=== PATIENT | female | born 2000 | race American Indian/Alaskan Native ===

== ENCOUNTER 2019-07-09 21:18 | Emergency (ER) | payer BC ==
[2019-07-09 21:44] VITALS: BP 122/80
== END 2019-07-09 23:50 | disposition left against medical advice (07) ==
LOC: ED 21:18
DX: J45.909 Unspecified asthma, uncomplicated (principal); Z53.21 Procedure and treatment not carried out due to patient leaving prior to being seen by health care provider

== ENCOUNTER 2020-01-30 21:26 | Emergency (ER) | payer BC, MEDICAID ==
[2020-01-30] MEDS ORDERED: TETRACAINE 0.5% OPHTH SOLN 4ML OU STA (22:02)
[2020-01-30] MEDS ORDERED: FLUORESCEIN 1 MG STRIP OP STA (22:02)
[2020-01-30 22:09] VITALS: BP 126/81
--- NOTE | 2020-01-30 23:28 | Emergency Department Report ---
Eye Injury/Foreign Body - HPI Duration: Today Eye Location: Left Severity: None Tetanus Status: Up to Date Eye Symptoms: Eye Pain: Yes, Blurred Vision: Yes, Eye Redness: Yes, Grinding/Hammering Metal: No, Used Eye Protection: No, Contact Lens Use: No, Recalls Injury: Yes (Continue to patient with her sister and was also an scratch to her left), Photophobia: No ED Review of Systems ROS: Stated complaint: LT EYE PAINS Other details as noted in HPI Comment: All other systems reviewed and negative Constitutional: denies: chills, fever Eyes: eye pain. denies: eye discharge ENT: denies: ear pain, throat pain Respiratory: denies: cough, shortness of breath, wheezing Cardiovascular: denies: chest pain, palpitations Endocrine: no symptoms reported Gastrointestinal: denies: abdominal pain, nausea, diarrhea Genitourinary: denies: urgency, dysuria, discharge Musculoskeletal: denies: back pain, joint swelling, arthralgia Skin: denies: rash, lesions Neurological: denies: headache, weakness, paresthesias Psychiatric: denies: anxiety, depression Hematological/Lymphatic: denies: easy bleeding, easy bruising ED Past Medical Hx - Past Medical History Previous Medical History?: Yes Hx Asthma: Yes - Surgical History Past Surgical History?: Yes Additional Surgical History: Hernia Repair - Social History Smoking Status: Never Smoker Substance Use Type: None - Medications Home Medications: Home Medications Medication Instructions Recorded Confirmed Last Taken Type Ketorolac Tromethamin 0.4%(Nf) 1 drop OP QID #1 bottle 10/30/20 Unknown Rx [Acular Ls 0.4% Ophth Koki] Tobramycin [Tobrex] 1 drop OP Q4H #1 bottle 10/30/20 Unknown Rx Eye Injury Exam - Exam General: Vital signs noted. No distress. Alert and acting appropriately. - Visual Acuity Right Vision Acuity Degree: 20/50 Eye Exam: Neither Injection, Neither Chemosis, Neither Abnormal Pupil, Neither EOMI, Neither Eye Foreign Body, Neither Lid Foreign Body, Neither Mucous Discharge, Neither Purulent Discharge, Neither Fluorescein Uptake, Neither Fluorescein Uptake (slit lamp), Neither Cell/Flare (slit lamp), Neither Corneal Edema, Neither Photophobia Left Vision Acuity Degree: 0 Eye Exam: Left Injection, Left Fluorescein Uptake, Neither Chemosis, Neither Abnormal Pupil, Neither EOMI, Neither Eye Foreign Body, Neither Lid Foreign Body, Neither Mucous Discharge, Neither Purulent Discharge, Neither Fluorescein Uptake (slit lamp), Neither Cell/Flare (slit lamp), Neither Corneal Edema, Neither Photophobia Exam: Would not open the left eye for visual acuity ports pain ED Course Vital Signs 01/30/20 21:48 Temperature 99.0 F Pulse Rate 94 H Respiratory 18 Rate Blood Pressure 126/81 O2 Sat by Pulse 99 Oximetry Critical care attestation.: If time is entered above; I have spent that time in minutes in the direct care of this critically ill patient, excluding procedure time. ED Disposition Clinical Impression: Corneal abrasion Disposition: DC-01 TO HOME OR SELFCARE Is pt being admited?: No Does the pt Need Aspirin: No Condition: Stable Instructions: Corneal Abrasion (ED) Prescriptions: Ketorolac Tromethamin 0.4%(Nf) [Acular Ls 0.4% Ophth Koik] 1 drop OP QID #1 bottle Tobramycin [Tobrex] 1 drop OP Q4H #1 bottle Referrals: PRIMARY CAREMD [Primary Care Provider] - 3-5 Days [facility] [Provider Group] - 3-5 Days
== END 2020-01-30 23:43 | disposition home or self-care (01) ==
LOC: ED 21:26
DX: S05.02XA Injury of conjunctiva and corneal abrasion without foreign body, left eye, initial encounter (principal); J45.909 Unspecified asthma, uncomplicated; Z79.2 Long term (current) use of antibiotics; Z98.890 Other specified postprocedural states; Z79.899 Other long term (current) drug therapy; Z88.0 Allergy status to penicillin; X58.XXXA Exposure to other specified factors, initial encounter; Y93.89 Activity, other specified; Y92.89 Other specified places as the place of occurrence of the external cause; Y99.8 Other external cause status

== ENCOUNTER 2021-05-02 11:30 | Emergency (ER) | payer BC ==
[2021-05-02 11:41] VITALS: BP 124/76
[2021-05-02] MEDS ORDERED: SODIUM CHLORIDE 0.9% 1000 ML 1,000 ML IV ONE ×2 (12:22→16:20)
[2021-05-02] MEDS ORDERED: ACETAMINOPHEN 500 MG TAB PO STA (12:22)
[2021-05-02] MEDS ORDERED: ONDANSETRON 4 MG/2 ML INJ IV ONE (12:22)
[2021-05-02] MEDS ORDERED: ACETAMINOPHEN 325 MG TAB PO ONE (12:24)
[2021-05-02] MEDS ORDERED: ACETAMINOPHEN W/CODEINE 300-30 MG TAB PO ONE (12:25)
--- NOTE | 2021-05-02 12:25 | Emergency Department Report ---
ED General Adult HPI - General Chief complaint: Fall Stated complaint: 18WKS /ABD/HEAD PAIN Time Seen by Provider: 05/02/21 12:15 Source: patient Mode of arrival: Ambulatory Limitations: No Limitations - History of Present Illness Initial comments: 20-year-old -Stateless female patient presents with complaints of fall and lower abdominal pain. Patient states she is approximately 18 weeks and while in the shower got dizzy and fell, losing consciousness. Patient is unsure of how long she lost consciousness for. She also states she is unsure if she hit her head, however she reports a headache that she rates as a 6/10 in [facility]. She also reports 1 episode of vomiting in route to the hospital. Patient states she has had vomiting throughout her and had one episode yesterday. No hematemesis/coffee-ground emesis, chest pain, shortness of breath, or cough per patient. She also denies any recent long travel, leg pain/swelling, or history of DVT/PE/cancer. She is G1, . No vaginal bleeding or urinary symptoms per patient. She rates her abdominal pain as a 7/10 in severity and describes it as cramping. Patient also denies any vision changes, numbness/tingling/weakness in her limbs, difficulty with speech/ambulation, confusion. She does admit to mild dizziness Severity scale (0 -10): 10 - Related Data Previous Rx's Medication Instructions Recorded Last Taken Type Ketorolac Tromethamin 0.4%(Nf) 1 drop OP QID #1 bottle 01/30/20 Unknown Rx [Acular Ls 0.4% Ophth Koki] Tobramycin [Tobrex] 1 drop OP Q4H #1 bottle 01/30/20 Unknown Rx Allergies Allergy/AdvReac Type Severity Reaction Status Date / Time Penicillins Allergy Hives Verified 01/30/20 21:58 ED Review of Systems ROS: Stated complaint: 18WKS /ABD/HEAD PAIN Other details as noted in HPI Constitutional: denies: chills, fever, malaise Respiratory: denies: cough, shortness of breath Cardiovascular: denies: chest pain Gastrointestinal: as per HPI Genitourinary: denies: urgency, dysuria, frequency, hematuria, discharge, abnormal menses, dyspareunia Musculoskeletal: denies: back pain Skin: denies: rash, lesions, change in color Neurological: headache. denies: weakness, numbness, paresthesias, abnormal gait Hematological/Lymphatic: denies: easy bleeding ED Past Medical Hx - Past Medical History Previous Medical History?: Yes Hx Asthma: Yes - Surgical History Past Surgical History?: Yes Additional Surgical History: Hernia Repair - Social History Smoking Status: Never Smoker Substance Use Type: None - Medications Home Medications: Home Medications Medication Instructions Recorded Confirmed Last Taken Type Ketorolac Tromethamin 0.4%(Nf) 1 drop OP QID #1 bottle 01/30/20 Unknown Rx [Acular Ls 0.4% Ophth Kkoi] Tobramycin [Tobrex] 1 drop OP Q4H #1 bottle 01/30/20 Unknown Rx ED Physical Exam - General Limitations: No Limitations General appearance: alert, in no apparent distress - Head Head exam: Present: atraumatic, normocephalic - Eye Eye exam: Present: normal appearance, PERRL, EOMI. Absent: scleral icterus - Neck Neck exam: Present: normal inspection, full ROM. Absent: tenderness - Respiratory Respiratory exam: Present: normal lung sounds bilaterally. Absent: respiratory distress - Cardiovascular Cardiovascular Exam: Present: regular rate, normal rhythm, normal heart sounds - GI/Abdominal GI/Abdominal exam: Present: soft, tenderness (generalized lower abdominal), normal bowel sounds. Absent: distended, guarding, rebound, rigid - Extremities Exam Extremities exam: Present: full ROM - Back Exam Back exam: Present: full ROM. Absent: tenderness - Neurological Exam Neurological exam: Present: alert, oriented X3, CN II-XII intact, normal gait. Absent: motor sensory deficit - Expanded Neurological Exam Expanded Speech: Present: fluid speech Cerebellar function: Finger to Nose: Normal, Heel to Arrington: Normal, Romberg: Normal Sensory exam: Upper Extremity Light Touch: Normal, Lower Extremity Light Touch: Normal Motor strength exam: RUE: 4, LUE: 4, RLE: 4, LLE: 4 Best Eye Response (Gustine): (4) open spontaneously Best Motor Response (Roxanne): (6) obeys commands Best Verbal Response (Roxanne): (5) oriented Roxanne Total: 15 - Psychiatric Psychiatric exam: Present: normal affect, normal mood - Skin Skin exam: Present: warm, dry, intact, normal color. Absent: rash ED Course Vital Signs 05/02/21 11:39 Temperature 97.6 F Pulse Rate 114 H Respiratory 14 Rate Blood Pressure 124/76 [Left] O2 Sat by Pulse 100 Oximetry ED Medical Decision Making - Lab Data Result diagrams: 05/02/21 12:34 05/02/21 12:34 Lab Results 05/02/21 05/02/21 05/02/21 Range/Units 12:34 12:34 12:34 WBC 8.5 (4.5-11.0) K/mm3 RBC 4.49 (3.65-5.03) M/mm3 Hgb 14.5 H (10.1-14.3) gm/dl Hct 42.9 (30.3-42.9) % MCV 95 (79-97) fl MCH 32 (28-32) pg MCHC 34 (30-34) % RDW 13.4 (13.2-15.2) % Plt Count 205 (140-440) K/mm3 Lymph % (Auto) 11.1 L (13.4-35.0) % Conway % (Auto) 5.7 (0.0-7.3) % Eos % (Auto) 0.7 (0.0-4.3) % Baso % (Auto) 0.2 (0.0-1.8) % Lymph # (Auto) 0.9 L (1.2-5.4) K/mm3 Conway # (Auto) 0.5 (0.0-0.8) K/mm3 Eos # (Auto) 0.1 (0.0-0.4) K/mm3 Baso # (Auto) 0.0 (0.0-0.1) K/mm3 Seg Neutrophils % 82.3 H (40.0-70.0) % Seg Neutrophils # 7.0 (1.8-7.7) K/mm3 Sodium 137 (137-145) mmol/L Potassium 4.2 (3.6-5.0) mmol/L Chloride 99.4 (98-107) mmol/L Carbon Dioxide 22 (22-30) mmol/L Anion Gap 20 mmol/L BUN 9 (7-17) mg/dL Creatinine 0.5 L (0.6-1.2) mg/dL Estimated GFR > 60 ml/min BUN/Creatinine Ratio 18 % Glucose 75 (65-100) mg/dL Calcium 9.3 (8.4-10.2) mg/dL Total Bilirubin 0.60 (0.1-1.2) mg/dL AST 46 H (5-40) units/L ALT 48 (7-56) units/L Alkaline Phosphatase 61 (35-129) units/L Total Protein 7.1 (6.3-8.2) g/dL Albumin 4.3 (3.9-5) g/dL Albumin/Globulin Ratio 1.5 % HCG, Quant 51283 H (0-4) mIU/mL Urine Color (Yellow) Urine Turbidity (Clear) Urine pH (5.0-7.0) Ur Specific [place] (1.003-1.030) Urine Protein (Negative) mg/dL Urine Glucose (UA) (Negative) mg/dL Urine Ketones (Negative) mg/dL Urine Blood (Negative) Urine Nitrite (Negative) Urine Bilirubin (Negative) Urine Urobilinogen (<2.0) mg/dL Ur Leukocyte Esterase (Negative) Urine WBC (Auto) (0.0-6.0) /HPF Urine RBC (Auto) (0.0-6.0) /HPF 05/02/21 Range/Units Unknown WBC (4.5-11.0) K/mm3 RBC (3.65-5.03) M/mm3 Hgb (10.1-14.3) gm/dl Hct (30.3-42.9) % MCV (79-97) fl MCH (28-32) pg MCHC (30-34) % RDW (13.2-15.2) % Plt Count (140-440) K/mm3 Lymph % (Auto) (13.4-35.0) % Conway % (Auto) (0.0-7.3) % Eos % (Auto) (0.0-4.3) % Baso % (Auto) (0.0-1.8) % Lymph # (Auto) (1.2-5.4) K/mm3 Conway # (Auto) (0.0-0.8) K/mm3 Eos # (Auto) (0.0-0.4) K/mm3 Baso # (Auto) (0.0-0.1) K/mm3 Seg Neutrophils % (40.0-70.0) % Seg Neutrophils # (1.8-7.7) K/mm3 Sodium (137-145) mmol/L Potassium (3.6-5.0) mmol/L Chloride (98-107) mmol/L Carbon Dioxide (22-30) mmol/L Anion Gap mmol/L BUN (7-17) mg/dL Creatinine (0.6-1.2) mg/dL Estimated GFR ml/min BUN/Creatinine Ratio % Glucose (65-100) mg/dL Calcium (8.4-10.2) mg/dL Total Bilirubin (0.1-1.2) mg/dL AST (5-40) units/L ALT (7-56) units/L Alkaline Phosphatase (35-129) units/L Total Protein (6.3-8.2) g/dL Albumin (3.9-5) g/dL Albumin/Globulin Ratio % HCG, Quant (0-4) mIU/mL Urine Color Denise (Yellow) Urine Turbidity Slightly-cloudy (Clear) Urine pH 5.0 (5.0-7.0) Ur Specific [place] 1.029 (1.003-1.030) Urine Protein 30 mg/dl (Negative) mg/dL Urine Glucose (UA) Neg (Negative) mg/dL Urine Ketones 80 (Negative) mg/dL Urine Blood Neg (Negative) Urine Nitrite Neg (Negative) Urine Bilirubin Neg (Negative) Urine Urobilinogen 4.0 (<2.0) mg/dL Ur Leukocyte Esterase Tr (Negative) Urine WBC (Auto) < 1.0 (0.0-6.0) /HPF Urine RBC (Auto) < 1.0 (0.0-6.0) /HPF - Radiology Data Radiology results: report reviewed cc: TONY GUERRA OB Ultrasound HISTORY: pain after fall, 18 weeks . TECHNIQUE: Grayscale and color imaging performed. COMPARISON: None FINDINGS: Single viable intrauterine gestation with cephalic presentation and anterior placenta. Heart rate was 141 bpm during the exam. Overall gestational age by ultrasound of 18 weeks and 0 days compared to clinical gestational age of 18 weeks and 4 days. Estimated delivery date is 10/03/2021. Estimated weight is 204 g. Limited anatomic survey was unremarkable. Cervical length was 3.3 cm. IMPRESSION: No acute abnormality identified. Single viable intrauterine gestation as above. - Medical Decision Making 20-year-old -Stateless female patient presents with complaints of fall and lower abdominal pain. Patient states she is approximately 18 weeks and while in the shower got dizzy and fell, losing consciousness. Patient is unsure of how long she lost consciousness for. She also states she is unsure if she hit her head, however she reports a headache that she rates as a 6/10 in severity. She also reports 1 episode of vomiting in route to the hospital. Patient states she has had vomiting throughout her and had one episode yesterday. No hematemesis/coffee-ground emesis, chest pain, shortness of breath, or cough per patient. She also denies any recent long travel, leg pain/swelling, or history of DVT/PE/cancer. She is G1, . No vaginal bleeding or urinary symptoms per patient. She rates her abdominal pain as a 7/10 in severity and describes it as cramping. Patient also denies any vision c hanges, numbness/tingling/weakness in her limbs, difficulty with speech/ambulation, confusion. She does admit to mild dizziness Labs show anion gap of 20 without other acute abnormalities. Patient given 1 L normal saline. Neuro exam is normal. Vitals are now normal. Patient continues to deny shortness of breath, chest pain, cough, recent long travel, or history of DVT/PE/cancer discussed patient with Dr. Warren, who does not recommend D- dimer testing. Discussed possibility of CT head with patient and risks versus benefits given . Patient declines CT head with shared decision making. She states she is feeling well and denies any further headache or abdominal pain. Ultrasound is negative for any acute abnormalities. Patient is stable for discharge home. We will treat for concussion with brain rest. Recommend follow-up with primary care and UPSETTING MACHINE OPERATOR within 2 to 3 days. Patient to also be watched by her mother over night while sleeping and discussed patient being wa tomasa up every 2 hours, patient states understand importance of. High water intake discussed given dehydration. Discussed in great detail signs and symptoms that should prompt immediate return to the emergency department with patient who verbalizes understanding. Critical care attestation.: If time is entered above; I have spent that time in minutes in the direct care of this critically ill patient, excluding procedure time. ED Disposition Clinical Impression: Syncope, Head injury, Dehydration Disposition: 01 HOME / SELF CARE / HOMELESS Is pt being admited?: No Condition: Stable Instructions: Concussion, Adult, [id number], Dehydration, Adult, [id number], Syncope, Syncope (ED) Additional Instructions: Please follow-up with your UPSETTING MACHINE OPERATOR in 2 to 3 days Referrals: PRIMARY CARE, [Primary Care Provider] - 2-3 Days [facility] [Provider Group] - 2-3 Days Forms: Work/School Release Form(ED)
[2021-05-02 13:23] LABS: Basophils % (Auto) 0.2 % (0.0-1.8); Eosinophils # (Auto) 0.1 K/mm3 (0.0-0.4); Eosinophils % (Auto) 0.7 % (0.0-4.3); Hematocrit 42.9 % (30.3-42.9); Hemoglobin 14.5 gm/dl (10.1-14.3); Lymphocytes # (Auto) 0.9 K/mm3 (1.2-5.4); Lymphocytes % (Auto) 11.1 % (13.4-35.0); Mean Corpuscular HGB Conc 34 % (30-34); Mean Corpuscular Volume 95 fl (79-97); Monocytes # (Auto) 0.5 K/mm3 (0.0-0.8); Monocytes % (Auto) 5.7 % (0.0-7.3); Platelet Count 205 K/mm3 (140-440); Red Blood Count 4.49 M/mm3 (3.65-5.03); Red Cell Distribution Width 13.4 % (13.2-15.2)
[2021-05-02 13:33] LABS: Alanine Aminotransferase 48 units/L (7-56); Albumin 4.3 g/dL (3.9-5); Blood Urea Nitrogen 9 mg/dL (7-17); Calcium 9.3 mg/dL (8.4-10.2); Hemolysis Index 54
[2021-05-02 13:40] LABS: BUN/Creatinine Ratio 18
--- NOTE | 2021-05-02 15:11 | Ultrasound Report ---
OB Ultrasound HISTORY: pain after fall, 18 weeks . TECHNIQUE: Grayscale and color imaging performed. COMPARISON: None FINDINGS: Single viable intrauterine gestation with cephalic presentation and anterior placenta. Hear t rate was 141 bpm during the exam. Overall gestational age by ultrasound of 18 weeks and 0 days comp ared to clinical gestational age of 18 weeks and 4 days. Estimated delivery date is 10/03/2021. Estimat ed weight is 204 g. Limited anatomic survey was unremarkable. Cervical length was 3.3 cm. IMPRESSION: No acute abnormality identified. Single viable intrauterine gestation as above. Signer Name: James Gutierrez MD Signed: 05/02/2021 3:06 PM Workstation Name: [id number]
[2021-05-02 16:02] LABS: Bilirubin,Urine NEG (Negative); Blood,Urine NEG (Negative); Color,Urine Amber (Yellow)
[2021-05-02 16:06] LABS: RBC,Urine < 1.0 /HPF (0.0-6.0); WBC,Urine < 1.0 /HPF (0.0-6.0)
== END 2021-05-02 16:53 | disposition home or self-care (01) ==
LOC: ED 11:30
DX: R55 Syncope and collapse (principal); S09.90XA Unspecified injury of head, initial encounter; E86.0 Dehydration; Z88.6 Allergy status to analgesic agent; X58.XXXA Exposure to other specified factors, initial encounter; Y93.89 Activity, other specified; Y92.89 Other specified places as the place of occurrence of the external cause; Y99.8 Other external cause status
CPT/HCPCS: 36415; 76805; 80053; 81001; 84702; 85025; 96361; 96374; 99284; J7030; Q0162